=== PATIENT | female | born 1965 | race Caucasian/White ===

== ENCOUNTER → 2020-12-22 | Outpatient (CLI) | payer OTHER ==
--- NOTE | 2020-12-22 11:51 | REP ---
INDICATION: NICOTINE DEPEND. COMPARISON: None. TECHNIQUE: The study is performed without IV contrast. The images are print at lung windowing only. FINDINGS: There are no lung nodules or masses. There is a curvilinear parenchymal scar versus atelectasis in the left lower lobe. There are no infiltrates or pleural effusions. IMPRESSION: Category [address] low-dose lung screening CT of the chest. The probability of malignancy is less than 1%. Depending on risk factors consider annual follow-up low-dose lung screening chest CT. <Electronically signed by Benny Noonan > 12/22/20 [id number]
== END ==
LOC: M RAD 10:29
PROVIDERS: ATTEND Nurse Practitioner Family
DX: Z12.2 Encounter for screening for malignant neoplasm of respiratory organs (principal); F17.210 Nicotine dependence, cigarettes, uncomplicated

== ENCOUNTER → 2020-12-22 | Outpatient (CLI) | payer OTHER ==
--- NOTE | 2020-12-22 13:49 | REP ---
INDICATION: DENSE BREASTS. COMPARISON: None. TECHNIQUE: Bilateral whole breast sonography is performed. FINDINGS: Heterogeneous fibroglandular background echotexture is seen. No cyst or mass is seen in either breast. No architectural distortion is seen. IMPRESSION: No suspicious abnormality. BI-RADS category 1-findings. <Electronically signed by Robert Leiva > 12/22/20 [id number]
== END ==
LOC: M WHC 12:40
PROVIDERS: ATTEND Nurse Practitioner Family
DX: R92.8 Other abnormal and inconclusive findings on diagnostic imaging of breast (principal)

== ENCOUNTER → 2021-03-03 | Outpatient (CLI) | payer OTHER ==
--- NOTE | 2021-03-03 15:19 | REP ---
INDICATION: ABD PELVIC PAIN, OVARIAN CYST?. COMPARISON: None TECHNIQUE: Transvaginal imaging only. This limits the exam. FINDINGS: The uterus measures approximately 5.9 x 2.6 x 4.7 cm. The parenchymal echo pattern is within normal limits. The endometrial echo complex is smooth and unremarkable appearing with a maximal thickness of between 2 and 3 mm. The right ovary measures 2 x 1 x 2.1 cm and is within normal limits with an RI 0.55. Left ovary measures 1.5 x 1.4 x 1.4 cm with an RI 0.55. Within the left ovary there is a somewhat hypoechoic 1 cm sized structure. Color Doppler shows no evidence of internal blood flow. There is no free fluid. There is an incidental nabothian cyst. IMPRESSION: Limited transvaginal exam only showing a small hypoechoic area in the left ovary possibly representing a decompressing hemorrhagic cyst. Two month follow-up is recommended. <Electronically signed by Geovanny Merchant > 03/03/21 [id number]
== END ==
LOC: M RAD 14:02
PROVIDERS: ATTEND Nurse Practitioner Family
DX: R10.2 Pelvic and perineal pain (principal)

== ENCOUNTER → 2021-05-24 | Outpatient (CLI) | payer OTHER ==
--- NOTE | 2021-05-24 11:04 | REP ---
INDICATION: F/U LT OVARIAN LESION COMPARISON: 03/03/2021 TECHNIQUE: Transvaginal examination for better evaluation of the endometrium and adnexa with color Doppler evaluation of the ovaries. FINDINGS: Anteverted uterus measures 7.2 x 2.9 x 4.1 cm. The endometrial complex measures 2.4 mm thickness. No significant discrete uterine or endometrial abnormalities are appreciated. Bilateral ovaries are normal in vascularity without evidence for torsion. Right ovary measures 1.7 x 1.1 x 1.0 cm; R I = 0.47. Left ovary measures 2.4 x 1.1 x 2.0 cm with 9 mm hypoechoic structure relatively unchanged and relatively non conspicuous; R I = 0.48. No pelvic fluid or adnexal mass lesion. IMPRESSION: Uterus and right ovary are essentially stable and normal. Small 9 mm hypoechoic focus in the left ovary may represent normal tissue. Finding is not particularly suspicious by ultrasound evaluation. If there is further concern, consider female pelvic MR evaluation. <Electronically signed by Rajesh Weber > 05/24/21 [id number]
== END ==
LOC: M RAD 10:04
PROVIDERS: ATTEND Nurse Practitioner Family
DX: R93.5 Abnormal findings on diagnostic imaging of other abdominal regions, including retroperitoneum (principal)

== ENCOUNTER → 2022-01-11 | Outpatient (CLI) | payer OTHER | LOC: M WHC 10:01 | PROVIDERS: ATTEND Nurse Practitioner Family | DX: R92.8 Other abnormal and inconclusive findings on diagnostic imaging of breast (principal) ==

== ENCOUNTER → 2022-01-24 | Outpatient (CLI) | payer OTHER | LOC: M RAD 12:46 | PROVIDERS: ATTEND Nurse Practitioner Family | DX: Z12.2 Encounter for screening for malignant neoplasm of respiratory organs (principal); F17.210 Nicotine dependence, cigarettes, uncomplicated ==

== ENCOUNTER → 2025-08-23 | Outpatient (CLI) | payer OTHER ==
[~2025-08-23] MED LIST: ACET1TAB55 PO; AMLO1TAB25 PO; ATOR1TAB19 PO; LISI5TAB11 PO; MELO7.5T35 PO; OMEP-173 PO; TRAM50TA2 PO; VENL37.598 PO; VITA100093 PO
== END ==
LOC: M RAD 06:41
PROVIDERS: ATTEND Orthopaedic Surgery
DX: M16.11 Unilateral primary osteoarthritis, right hip (principal)

== ENCOUNTER 2025-09-06 06:13 | Observation (INO) | payer OTHER ==
[~2025-09-06] VITALS: Ht 157.5 cm; Wt 51.9 kg
[2025-09-06] MEDS ORDERED: ONDANSETRON 4MG/2ML VIAL As Ordered ONE (07:19)
[2025-09-06] MEDS ORDERED: dexAMETHasone 4 MG/ML 1 ML VIAL As Ordered ONE (07:19)
[2025-09-06] MEDS ORDERED: ROCURONIUM BROMIDE 50MG/5ML VIAL As Ordered ONE (07:19)
[2025-09-06] MEDS ORDERED: LIDOCAINE 2% 100 MG/5 ML SDV (FOR ANES.) As Ordered ONE (07:19)
[2025-09-06] MEDS ORDERED: dexmedeTOMIDine (4 MCG/ML) 200 MCG/50 ML BTL As Ordered ONE (07:20)
[2025-09-06] MEDS ORDERED: MIDAZOLAM INJ 2 MG/2 ML VIAL As Ordered ONE (07:20)
[2025-09-06] MEDS: LR 1,000 ML IV SCH ×3 (07:28→16:12)
[2025-09-06] MEDS: TRANEXAMIC ACID 100 MG/ML 10ML VIAL As Ordered ONE (07:59)
[2025-09-06] MEDS ORDERED: PHENYLephrine 500MCG 5ML (100MCG/ML) SYRINGE As Ordered ONE (08:21)
[2025-09-06] MEDS ORDERED: HYDROmorphone HCL 2 MG/ML 1 ML VIAL As Ordered ONE (09:01)
[2025-09-06] MEDS ORDERED: SUGAMMADEX SODIUM 200 MG/2 ML VIAL As Ordered ONE (09:37)
[2025-09-06] MEDS ORDERED: ACETAMINOPHEN 1000MG/100ML IV BAG As Ordered ONE (09:37)
[2025-09-06] MEDS ORDERED: KETOROLAC 30 MG/ML 1 ML VIAL As Ordered ONE (09:37)
[2025-09-06] MEDS ORDERED: LACRILUBE (AKWA TEARS) OPHTH OINT 3.5 GM As Ordered ONE (10:06)
[2025-09-06] MEDS: VANCOMYCIN 1000MG/20ML VIAL As Ordered ONE (10:22)
[2025-09-06] MEDS: REK 50ML SYRINGE IA ONE (10:22)
[2025-09-06] MEDS ORDERED: LABETALOL 100 MG/20 ML VIAL As Ordered ONE (10:32)
[2025-09-06] MEDS ORDERED: HYDROMORPHONE HCL 0.5 MG/0.5 ML SYRINGE IV PRN (11:05)
[2025-09-06] MEDS ORDERED: SENNA 8.6 MG TAB PO PRN (11:05)
[2025-09-06] MEDS ORDERED: ONDANSETRON 4MG/2ML VIAL IV PRN (11:05)
[2025-09-06] MEDS ORDERED: TETRACAINE 0.5% OPHTH SOLN 4ML As Ordered ONE (13:46)
[2025-09-06] MEDS: TETRACAINE 0.5% OPHTH SOLN 4ML OU ONE (13:48)
[2025-09-06 14:30] VITALS: BP 114/63; TEMP 96.9; O2SAT 99
[2025-09-06 15:30] VITALS: BP 119/59; TEMP 96.7; O2SAT 97
[2025-09-06] MEDS: ceFAZolin SODIUM 2 GM in DEXTROSE 5% (D5W) ADV/MINI-BAG 50 ML IV SCH (16:29)
[2025-09-06 16:30] VITALS: BP 123/64; TEMP 97; O2SAT 94
[2025-09-06] MEDS: ACETAMINOPHEN 325 MG TAB PO SCH (16:30)
[2025-09-06] MEDS: ONDANSETRON 4MG/2ML VIAL IV PRN (18:05)
[2025-09-06 20:00] VITALS: BP 149/79; TEMP 97.4; O2SAT 98
[2025-09-06] MEDS: DOCUSATE SODIUM 100 MG CAPSULE PO SCH (20:12)
[2025-09-06] MEDS: ASPIRIN 81 MG ENTERIC TABLET PO SCH (20:12)
[2025-09-07 06:30] VITALS: BP 121/60; TEMP 99.2; O2SAT 97
[2025-09-07 08:45] LABS: PLATELET COUNT, AUTOMATED 213 10^3/uL (150-450)
[2025-09-07 09:18] LABS: ALT/SGPT 19 U/L (7.0-40); AST/SGOT 31 U/L (<34); CALCIUM LEVEL 8.3 MG/DL (8.3-10.6); CARBON DIOXIDE LEVEL 28 MMOL/L (20-31); CHLORIDE LEVEL 106 MMOL/L (98-107); CREATININE FOR GFR 0.51 MG/DL (0.55-1.30); GLOMERULAR FILTRATION RATE > 90.0 (>45); POTASSIUM SERUM 3.6 MMOL/L (3.5-5.1); SODIUM LEVEL 139 MMOL/L (136-145)
[2025-09-07] MEDS: ASCORBIC ACID 500 MG TAB PO SCH (09:34)
[2025-09-07] MEDS: FERROUS SULFATE 325 MG TAB PO SCH (09:34)
[2025-09-07 10:00] VITALS: BP 110/59; TEMP 97.3; O2SAT 98
[2025-09-07] MEDS ORDERED: ACET32TAB PO (10:33)
[2025-09-07] MEDS ORDERED: PERC5TAB12 PO (10:33)
[2025-09-07] MEDS ORDERED: ASPI81TAEC PO (10:33)
[2025-09-07] MEDS ORDERED: CELE100C PO (10:33)
[2025-09-07] MEDS ORDERED: TRAN650T PO (10:37)
[2025-09-07] MEDS ORDERED: CEFD1CAP9 PO (10:39)
== END 2025-09-07 13:00 | disposition home or self-care (01) ==
LOC: M SDC 06:13 → M ED INP 11:03 → M MS5PR 14:20
PROVIDERS: ADMIT Orthopaedic Surgery; ATTEND Orthopaedic Surgery
DX: M16.11 Unilateral primary osteoarthritis, right hip (principal)
CPT/HCPCS: 27130; 36415; 72170; 80053; 85027; 88304; 96365; 96366; 96375; 97116; 97161; 97165; 97530; 97535; C1713; C1776; J0131; J0165; J0688; J1100; J1171; J1885; J1920; J2250; J2371; J2405; J2795; J3010; J3373; S2900

== ENCOUNTER → 2025-09-22 | Outpatient (CLI) | payer OTHER ==
[~2025-09-22] MED LIST changes: +ACET32TAB PO; +ASPI81TAEC PO; +CEFD1CAP9 PO; +CELE100C PO; +PERC5TAB12 PO; +TRAN650T PO
== END ==
LOC: M SOG 07:33
PROVIDERS: ATTEND Orthopaedic Surgery
DX: Z53.9 Procedure and treatment not carried out, unspecified reason (principal)

== ENCOUNTER → 2025-09-27 | Outpatient (CLI) | payer OTHER | LOC: M SOG 07:35 | PROVIDERS: ATTEND Orthopaedic Surgery | DX: Z96.641 Presence of right artificial hip joint (principal); Z47.1 Aftercare following joint replacement surgery ==